=== PATIENT | male | born 1975 | race African-American/Black ===

== ENCOUNTER 2023-06-12 11:08 | Inpatient (IN) | payer MEDICAID ==
[~2023-06-12] VITALS: Ht 185.4 cm; Wt 140.6 kg
[2023-06-12] MEDS ORDERED: CEPHALEXIN 250MG CAPSULE PO ONE (12:45)
[2023-06-12 14:00] LABS: BASOPHILS % 0.2 % (0.0-2.0); HEMATOCRIT. 35.7 % (42.0-52.0); HEMOGLOBIN. 11.5 g/dL (14.0-18.0); LYMPHOCYTES % 10.5 % (20.0-50.0); MEAN CORPUSCULAR HEMOGLOBIN 26.5 pg (28.0-32.0); MEAN CORPUSCULAR HGB CONC 32.1 g/dL (31.0-37.0); MEAN CORPUSCULAR VOLUME 82.7 fL (80.0-94.0); MEAN PLATELET VOLUME 8.6 fl (7.4-10.4); MONOCYTES % 6.3 % (2.0-8.0); PLATELET 414 x1000/uL (130-400); RED BLOOD CELL COUNT 4.32 mill/uL (4.7-6.1); RED CELL DISTRIBUTION WIDTH 14.3 % (11.6-14.6); WHITE BLOOD COUNT 12.1 x1000/uL (4.5-11.0)
[2023-06-12 14:09] LABS: CHLORIDE 104 mEq/L (98-107); INDEX HEMOLYSI 1 (1-3); INDEX ICTERIC 1 (1-4); INDEX LIPEMIC 1 (1-3); POTASSIUM 3.9 mEq/L (3.5-5.1); SODIUM 136 mEq/L (136-145)
[2023-06-12 14:19] LABS: ALANINE AMINOTRANSFERASE 148 IU/L (13-61); ALBUMIN 1.9 g/dL (3.4-5.0); ASPARTATE AMINOTRANSFERASE 82 IU/L (15-37); BILIRUBIN TOTAL 0.4 mg/dL (0.1-1.0); CALCIUM 8.8 mg/dL (8.5-10.1); CARBON DIOXIDE 26 mEq/L (21-32); CREATININE 0.9 mg/dL (0.6-1.3); GLUCOSE 95 mg/dL (70-105); NT PRO B-TYPE NATRIURETIC PEP 208 pg/mL (5-125); TROPONIN I HIGH SENSITIVITY 5 ng/L (<78); UREA NITROGEN BLOOD 12 mg/dL (7-21)
[2023-06-12] MEDS ORDERED: GUAIFENESIN 200MG/10ML SUGAR FREE UDC PO PRN (16:45)
[2023-06-12] MEDS ORDERED: ACETAMINOPHEN 325MG TABLET PO PRN (16:45)
[2023-06-12] MEDS ORDERED: IPRATROPIUM/ALBUTEROL 0.5-3(2.5)MG/3ML NEB NEB PRN (16:45)
[2023-06-12] MEDS ORDERED: CLONIDINE 0.1MG TABLET PO PRN (16:45)
[2023-06-12] MEDS ORDERED: ONDANSETRON HCL 4MG/2ML INJ IV PRN (16:45)
[2023-06-12] MEDS ORDERED: MAGNESIUM/ALUMINUM HYDROXIDE/SIMETHICONE 30ML UDC PO PRN (16:45)
[2023-06-12] MEDS ORDERED: CEFTRIAXONE 2 G in DEXTROSE 5% WATER 50 ML IV SCH (18:00)
[2023-06-12] MEDS ORDERED: VANCOMYCIN 2,000 MG in DEXT 5% WATER 500 ML IV NR ×2 (18:30→23:30)
[2023-06-12] MEDS: ACETAMINOPHEN 325MG TABLET PO PRN (19:17)
[2023-06-13] MEDS: ACETAMINOPHEN 325MG TABLET PO PRN (05:10)
[2023-06-13] MEDS: ENOXAPARIN 40MG/0.4ML SYR SUBCUT SCH ×3 (05:11→18:00)
[2023-06-13] MEDS ORDERED: NALOXONE HCL 0.4MG/ML VIAL IV PRN (06:00)
[2023-06-13 06:07] VITALS: BP 121/61; PULSE 93; RESP 18; TEMP 97.7
[2023-06-13 07:13] LABS: BASOPHILS % 0.3 % (0.0-2.0); HEMATOCRIT. 32.8 % (42.0-52.0); HEMOGLOBIN. 10.7 g/dL (14.0-18.0); LYMPHOCYTES % 12.9 % (20.0-50.0); MEAN CORPUSCULAR HEMOGLOBIN 26.9 pg (28.0-32.0); MEAN CORPUSCULAR HGB CONC 32.7 g/dL (31.0-37.0); MEAN CORPUSCULAR VOLUME 82.4 fL (80.0-94.0); MEAN PLATELET VOLUME 8.1 fl (7.4-10.4); MONOCYTES % 8.7 % (2.0-8.0); NEUTROPHILS % 77.1 % (40.0-76.0); PLATELET 425 x1000/uL (130-400); RED BLOOD CELL COUNT 3.98 mill/uL (4.7-6.1); RED CELL DISTRIBUTION WIDTH 14.2 % (11.6-14.6); WHITE BLOOD COUNT 9.6 x1000/uL (4.5-11.0)
[2023-06-13 07:20] LABS: CHLORIDE 107 mEq/L (98-107); INDEX HEMOLYSI 1 (1-3); INDEX ICTERIC 1 (1-4); INDEX LIPEMIC 1 (1-3); POTASSIUM 3.7 mEq/L (3.5-5.1); SODIUM 137 mEq/L (136-145)
[2023-06-13 07:29] LABS: ALANINE AMINOTRANSFERASE 124 IU/L (13-61); ALBUMIN 1.6 g/dL (3.4-5.0); ASPARTATE AMINOTRANSFERASE 66 IU/L (15-37); BILIRUBIN TOTAL 0.3 mg/dL (0.1-1.0); CALCIUM 8.1 mg/dL (8.5-10.1); CARBON DIOXIDE 26 mEq/L (21-32); CREATININE 0.8 mg/dL (0.6-1.3); GLUCOSE 122 mg/dL (70-105); PHOSPHORUS 3.5 mg/dL (2.5-4.9); PROTEIN TOTAL 7.7 g/dL (6.0-8.3); UREA NITROGEN BLOOD 10 mg/dL (7-21)
[2023-06-13] MEDS ORDERED: VANCOMYCIN 1G PREMIX 200 ML IV SCH (08:00)
[2023-06-13] MEDS: CEFTRIAXONE 2 G in DEXTROSE 5% WATER 50 ML IV SCH (09:13)
[2023-06-13] MEDS ORDERED: VANCOMYCIN 750MG PREMIX 150 ML IV SCH (11:30)
[2023-06-13 20:00] VITALS: BP 110/65; PULSE 88; RESP 20; TEMP 98.5
[2023-06-13] MEDS: HYDROCODONE/ACETAMINOPHEN 5/325MG TABLET PO PRN (20:22)
[2023-06-13 23:48] LABS: INDEX HEMOLYSI 1 (1-3); INDEX ICTERIC 1 (1-4); INDEX LIPEMIC 1 (1-3)
[2023-06-13 23:51] LABS: IRON 35 ug/dL (50-175); TOTAL IRON BINDING CAPACITY 170 ug/dL (250-450)
[2023-06-14] VITALS: BP 103/51; PULSE 90; RESP 20; TEMP 98
[2023-06-14] MEDS: HYDROCODONE/ACETAMINOPHEN 5/325MG TABLET PO PRN ×2 (02:21→12:30)
[2023-06-14 04:00] VITALS: BP 118/70; PULSE 78; RESP 19; TEMP 98
[2023-06-14] MEDS: ENOXAPARIN 40MG/0.4ML SYR SUBCUT SCH (06:23)
[2023-06-14] MEDS ORDERED: PANTOPRAZOLE 40MG DR TABLET PO SCH (07:20)
[2023-06-14 08:00] VITALS: BP 106/59; PULSE 74; RESP 18; TEMP 98.2
[2023-06-14] MEDS ORDERED: LIDOCAINE HCL 1% 10 MG/ML 10ML VIAL ONE (11:00)
[2023-06-14 12:00] VITALS: PULSE 79; RESP 17; TEMP 97.7
[2023-06-14] MEDS: CEFTRIAXONE 2 G in DEXTROSE 5% WATER 50 ML IV SCH (12:10)
[2023-06-14 12:54] LABS: HEMATOCRIT 32.3 % (42.0-52.0); HEMOGLOBIN 10.6 g/dL (14.0-18.0); MEAN CORPUSCULAR HGB CONC 32.7 g/dL (31.0-37.0); MEAN CORPUSCULAR VOLUME 82.4 fL (80.0-94.0); PLATELET 463 x1000/uL (130-400); RED BLOOD CELL COUNT 3.92 mill/uL (4.7-6.1); RED CELL DISTRIBUTION WIDTH 14.3 % (11.6-14.6); WHITE BLOOD COUNT 9.5 x1000/uL (4.5-11.0)
[2023-06-14 13:26] LABS: CHLORIDE 105 mEq/L (98-107); INDEX HEMOLYSI 1 (1-3); INDEX ICTERIC 1 (1-4); INDEX LIPEMIC 1 (1-3); POTASSIUM 4.3 mEq/L (3.5-5.1); SODIUM 135 mEq/L (136-145)
[2023-06-14 13:35] LABS: ALANINE AMINOTRANSFERASE 119 IU/L (13-61); ALBUMIN 1.7 g/dL (3.4-5.0); ASPARTATE AMINOTRANSFERASE 69 IU/L (15-37); BILIRUBIN TOTAL 0.3 mg/dL (0.1-1.0); CALCIUM 8.4 mg/dL (8.5-10.1); CREATININE 0.8 mg/dL (0.6-1.3); GLUCOSE 92 mg/dL (70-105); PROTEIN TOTAL 7.7 g/dL (6.0-8.3); UREA NITROGEN BLOOD 12 mg/dL (7-21)
[2023-06-14 14:29] LABS: CARBON DIOXIDE 25 mEq/L (21-32)
[2023-06-14] MEDS: VANCOMYCIN 1,750 MG in DEXT 5% WATER 250 ML IV SCH ×2 (14:34→14:43)
[2023-06-14 16:00] VITALS: BP 126/74; PULSE 84; RESP 18; TEMP 96.9
[2023-06-14 17:27] VITALS: BP 126/74; PULSE 84; TEMP 96.9; O2SAT 97
[2023-06-15] MEDS ORDERED: VANCOMYCIN 1,750 MG in DEXT 5% WATER 250 ML IV SCH (06:00)
== END 2023-06-14 18:08 | disposition home or self-care (01) | DRG 383 ==
LOC: ER 11:24 → EDBEDREQTM 18:58 → EDBEDREQ 18:58 → 6EST 21:22
PROVIDERS: ADMIT Internal Medicine; ATTEND Internal Medicine
PROC: 02HV33Z Insertion of Infusion Device into Superior Vena Cava, Percutaneous Approach (ICD-10-PCS; principal; 2023-06-14)
PROC: B548ZZA Ultrasonography of Superior Vena Cava, Guidance (ICD-10-PCS; 2023-06-14)
PROC: B5181ZA Fluoroscopy of Superior Vena Cava using Low Osmolar Contrast, Guidance (ICD-10-PCS; 2023-06-14)
DX: L03.115 Cellulitis of right lower limb (principal); E43 Unspecified severe protein-calorie malnutrition; E88.09 Other disorders of plasma-protein metabolism, not elsewhere classified; E11.9 Type 2 diabetes mellitus without complications; D64.9 Anemia, unspecified; E66.01 Morbid (severe) obesity due to excess calories; I10 Essential (primary) hypertension; I87.8 Other specified disorders of veins; E78.5 Hyperlipidemia, unspecified; E78.00 Pure hypercholesterolemia, unspecified; Z59.00 Homelessness unspecified; Z59.02 Unsheltered homelessness; Z68.41 Body mass index [BMI] 40.0-44.9, adult; R74.01 Elevation of levels of liver transaminase levels
CPT/HCPCS: 36415; 36573; 71045; 80053; 80061; 83036; 83540; 83550; 83605; 83735; 83880; 84100; 84134; 84145; 84484; 85025; 85027; 93005; 93923; 93971; 97161; 97165; 99285; C1725; J0696; J1650; J3370; J3490; J7060

== ENCOUNTER 2023-12-06 21:58 | Inpatient (IN) | payer MEDICAID ==
[~2023-12-06] VITALS: Ht 182.9 cm; Wt 129.3 kg
[~2023-12-06 21:58] MED LIST: AMOX1TAB16 MT; DOXY150T5 MT
[2023-12-07] VITALS (7 sets, daily range): BP systolic 98–132; BP diastolic 56–76; PULSE 69–79; RESP 18–20; TEMP 96.6–99.4
[2023-12-07] MEDS: ACETAMINOPHEN 500MG TABLET PO ONE (02:06)
[2023-12-07 02:08] LABS: BASOPHILS % 1.7 % (0.0-2.0); EOSINOPHILS % 1.3 % (0.0-5.0); LYMPHOCYTES % 29.9 % (20.0-50.0); MEAN CORPUSCULAR HEMOGLOBIN 26.2 pg (28.0-32.0); MEAN CORPUSCULAR HGB CONC 31.7 g/dL (31.0-37.0); MEAN CORPUSCULAR VOLUME 82.7 fL (80.0-94.0); MEAN PLATELET VOLUME 7.2 fl (7.4-10.4); MONOCYTES % 9.2 % (2.0-8.0); NEUTROPHILS % 57.9 % (40.0-76.0); PLATELET 299 x1000/uL (130-400); RED BLOOD CELL COUNT 4.59 mill/uL (4.7-6.1); RED CELL DISTRIBUTION WIDTH 15.1 % (11.6-14.6); WHITE BLOOD COUNT 8.8 x1000/uL (4.5-11.0)
[2023-12-07 02:28] LABS: ALANINE AMINOTRANSFERASE 58 IU/L (10-49); ALBUMIN 3.8 g/dL (3.2-4.8); ASPARTATE AMINOTRANSFERASE 28 IU/L (<34); BILIRUBIN TOTAL 0.2 mg/dL (0.1-1.0); CALCIUM 8.7 mg/dL (8.7-10.4); CARBON DIOXIDE 27 mEq/L (21-32); CHLORIDE 104 mEq/L (98-107); GLUCOSE 136 mg/dL (70-105); POTASSIUM 4.1 mEq/L (3.5-5.1); PROTEIN TOTAL 7.5 g/dL (6.0-8.3); SODIUM 136 mEq/L (136-145); UREA NITROGEN BLOOD 19 mg/dL (9-23)
[2023-12-07] MEDS: DOXYCYCLINE HYCLATE 100MG CAPSULE PO ONE (02:30)
[2023-12-07] MEDS: AMOXICILLIN/POTASSIUM CLAVULANATE 875/125MG TAB PO ONE (02:30)
[2023-12-07] MEDS ORDERED: ACETAMINOPHEN 325MG TABLET PO PRN ×2 (10:30)
[2023-12-07] MEDS ORDERED: ZOLPIDEM TARTRATE 5MG TABLET PO PRN (10:30)
[2023-12-07] MEDS ORDERED: CLONIDINE 0.1MG TABLET PO PRN (10:30)
[2023-12-07] MEDS ORDERED: IPRATROPIUM/ALBUTEROL 0.5-3(2.5)MG/3ML NEB HHN PRN (10:30)
[2023-12-07] MEDS ORDERED: MAGNESIUM/ALUMINUM HYDROXIDE/SIMETHICONE 30ML UDC PO PRN (10:30)
[2023-12-07] MEDS: AMOXICILLIN/POTASSIUM CLAVULANATE 875/125MG TAB PO SCH (21:22)
[2023-12-07] MEDS: DOXYCYCLINE HYCLATE 100MG CAPSULE PO SCH (21:22)
[2023-12-08] VITALS: BP 102/51; PULSE 72; RESP 19; TEMP 98.1
[2023-12-08 04:00] VITALS: BP 99/52; PULSE 63; RESP 16; TEMP 97.7
[2023-12-08 08:00] VITALS: BP 93/56; PULSE 72; RESP 19; TEMP 97.5
[2023-12-08 12:00] VITALS: BP 116/63; PULSE 63; RESP 18; TEMP 98.1
[2023-12-08 12:37] VITALS: BP 116/63; PULSE 63; TEMP 98.1; O2SAT 98
== END 2023-12-08 13:33 | disposition home or self-care (01) | DRG 254 ==
LOC: ER 22:07 → 6EST 12-07 02:15
PROVIDERS: ADMIT Internal Medicine; ATTEND Internal Medicine
DX: K61.1 Rectal abscess (principal); E11.9 Type 2 diabetes mellitus without complications; L02.31 Cutaneous abscess of buttock; E66.9 Obesity, unspecified; Z59.00 Homelessness unspecified; Z68.38 Body mass index [BMI] 38.0-38.9, adult
CPT/HCPCS: 36415; 76870; 80053; 85025; 93976; 99285